=== PATIENT | female | born 1945 | race Caucasian/White ===

== ENCOUNTER → 2017-05-12 | Outpatient (CLI) | payer OTHER ==
[2015-02-26 12:20] VITALS: BP 96/50
[~2017-05-12] MED LIST: AMLO5TAB2 PO; ASPI-630 PO; ATOR10TA60 PO; CARV25TA2 PO; CHOL100013 PO; FAMO20TA5 PO; HYDR12.58 PO; HYDR25TA9 PO; LISI-334 PO; MULT1TAB52 PO; OMEP40CA5 PO; PANT40TA5 PO; POTA20TA12 PO; SERT100T8 PO
--- NOTE | 2017-05-13 16:31 | RAD ---
DATE: 05/13/2017 EXAM: DIGITAL SCREEN RT W/CAD HISTORY: A symptomatic screening mammogram. History of left mastectomy. History of mother and sister x2 with breast cancer. COMPARISON: Mammogram 04/09/2016 This study was interpreted with the benefit of Computerized Aided Detection (CAD). The breast parenchyma is primarily fatty replaced. Breast parenchyma level density A. FINDINGS: MLO and cc views of the right breast are performed. There are no suspicious microcalcifications, masses or areas of architectural distortion. Findings are stable from the prior mammogram. IMPRESSION: Negative right mammogram. BI-RADS CATEGORY: 1 NEGATIVE RECOMMENDED FOLLOW-UP: 12M 12 MONTH FOLLOW-UP PQRS compliance statement: Patient information was entered into a reminder system with a target due date 05/13/2018 for the next mammogram. Mammography is a sensitive method for finding small breast cancers, but it does not detect them all and is not a substitute for careful clinical examination. A negative mammogram does not negate a clinically suspicious finding and should not result in delay in biopsying a clinically suspicious abnormality. "Our facility is accredited by the [employer] Mammography [employer]."
== END | disposition home or self-care (01) ==
LOC: MAMMO 10:40
PROVIDERS: ATTEND Specialist
DX: Z12.31 Encounter for screening mammogram for malignant neoplasm of breast (principal)
CPT/HCPCS: G0202; 77067

== ENCOUNTER → 2018-06-09 | Outpatient (CLI) | payer OTHER ==
[2015-02-26 12:20] VITALS: BP 96/50
--- NOTE | 2018-06-09 14:52 | RAD ---
DATE: 06/09/2018 EXAM: DIGITAL SCREEN RT W/CAD HISTORY: Previous left breast cancer COMPARISON: 05/12/2017 This study was interpreted with the benefit of Computerized Aided Detection (CAD). The breast parenchyma is primarily fatty replaced. Breast parenchyma level density A. FINDINGS: A small nodule projected over the axillary tail region of the right breast on the current study was not evident on the previous exam, however, that may be due to differences in patient positioning. A small lymph node is suspected. No other new or enlarging breast densities are seen. There are scattered benign type calcifications. No suspicious microcalcifications have developed. IMPRESSION: Newly visualized right axillary tail breast nodule. Diagnostic mammography and possibly right breast ultrasound are suggested for further evaluation. BI-RADS CATEGORY: 0 INCOMPLETE: NEEDS ADDITIONAL IMAGING EVALUATION AND/OR PRIOR MAMMOGRAMS FOR COMPARISON. RECOMMENDED FOLLOW-UP: ADD ADDITIONAL IMAGING PQRS compliance statement: Patient information was entered into a reminder system with a target due date for the next mammogram. Mammography is a sensitive method for finding small breast cancers, but it does not detect them all and is not a substitute for careful clinical examination. A negative mammogram does not negate a clinically suspicious finding and should not result in delay in biopsying a clinically suspicious abnormality. "Our facility is accredited by the [employer] Mammography [employer]."
== END | disposition home or self-care (01) ==
LOC: MAMMO 13:47
PROVIDERS: ATTEND Specialist
DX: N63.31 Unspecified lump in axillary tail of the right breast (principal); I10 Essential (primary) hypertension; E78.5 Hyperlipidemia, unspecified; E78.00 Pure hypercholesterolemia, unspecified; Z86.73 Personal history of transient ischemic attack (TIA), and cerebral infarction without residual deficits
CPT/HCPCS: 77067

== ENCOUNTER → 2018-06-23 | Outpatient (CLI) | payer OTHER ==
[2015-02-26 12:20] VITALS: BP 96/50
--- NOTE | 2018-06-23 14:38 | RAD ---
DATE: 06/23/2018 EXAM: MAMMO HILARIA DIAG RT HISTORY: Suspicious screening study COMPARISON: 06/19/2018 This study was interpreted with the benefit of Computerized Aided Detection (CAD). The breast parenchyma is primarily fatty replaced. Breast parenchyma level density A. FINDINGS: Additional views of the right breast including tomosynthesis imaging show that there is actually a cluster of 3 small benign-appearing lymph node type densities in the right axillary region. These were probably not evident on the older studies from 2017 and 2016 due to their far posterior positions. IMPRESSION: Probable benign right axillary tail region lymph nodes. Follow-up right mammography in 6 months is suggested to confirm stability. BI-RADS CATEGORY: 3 PROBABLY BENIGN FINDING(S)-SHORT INTERVAL FOLLOW-UP SUGGESTED RECOMMENDED FOLLOW-UP: 6M 6 MONTH FOLLOW-UP PQRS compliance statement: Patient information was entered into a reminder system with a target due date for the next mammogram. Mammography is a sensitive method for finding small breast cancers, but it does not detect them all and is not a substitute for careful clinical examination. A negative mammogram does not negate a clinically suspicious finding and should not result in delay in biopsying a clinically suspicious abnormality. "Our facility is accredited by the [employer] Mammography [employer]."
== END | disposition home or self-care (01) ==
LOC: MAMMO 13:40
PROVIDERS: ATTEND Specialist
DX: R92.8 Other abnormal and inconclusive findings on diagnostic imaging of breast (principal); I10 Essential (primary) hypertension; E78.5 Hyperlipidemia, unspecified; E78.00 Pure hypercholesterolemia, unspecified; Z86.73 Personal history of transient ischemic attack (TIA), and cerebral infarction without residual deficits
CPT/HCPCS: 77065; G0279; 77061

== ENCOUNTER → 2019-11-10 | Outpatient (CLI) | payer MEDICAID ==
[2015-02-26 12:20] VITALS: BP 96/50
[~2019-11-10] MED LIST changes: +AMLO5TAB10 PO; -AMLO5TAB2 PO; +HYDR-2145 PO; -HYDR25TA9 PO; +OMEP40CA45 PO; -OMEP40CA5 PO
--- NOTE | 2019-11-10 16:35 | RAD ---
DATE: 11/10/2019 EXAM: DIGITAL SCREEN RT W/CAD HISTORY: Left mastectomy. Routine screening. COMPARISON: 06/23/2018, 06/09/2018, 05/12/2017, 04/09/2016 mammographic exam This study was interpreted with the benefit of Computerized Aided Detection (CAD). Breast Density: SCATTERED The breast parenchyma shows scattered fibroglandular densities. Breast parenchyma level B. FINDINGS: Exam was performed with the patient in a wheelchair and has resulted is limited. Benign calcifications are present. No mass or distortion. No new asymmetries. IMPRESSION: Stable BI-RADS CATEGORY: 1 NEGATIVE RECOMMENDED FOLLOW-UP: 12M 12 MONTH FOLLOW-UP PQRS compliance statement: Patient information was entered into a reminder system with a target due date for the next mammogram. Mammography is a sensitive method for finding small breast cancers, but it does not detect them all and is not a substitute for careful clinical examination. A negative mammogram does not negate a clinically suspicious finding and should not result in delay in biopsying a clinically suspicious abnormality. "Our facility is accredited by the [employer] Mammography [employer]."
== END | disposition home or self-care (01) ==
LOC: MAMMO 13:39
PROVIDERS: ATTEND Specialist
DX: Z12.31 Encounter for screening mammogram for malignant neoplasm of breast (principal); N64.89 Other specified disorders of breast
CPT/HCPCS: 77067

== ENCOUNTER → 2020-11-26 | Outpatient (CLI) | payer MEDICAID ==
[2015-02-26 12:20] VITALS: BP 96/50
[~2020-11-26] MED LIST changes: +AMLO-186 PO; -AMLO5TAB10 PO; -LISI-334 PO; +LISI20TA18 PO; +MULT-445 PO; -MULT1TAB52 PO; -PANT40TA5 PO; +PANT40TA6 PO; +SERT-269 PO; -SERT100T8 PO
--- NOTE | 2020-11-26 13:06 | RAD ---
DATE: 11/26/2020 10:18 AM EXAM: DIGITAL SCREEN RT W/CAD HISTORY: Screening. Personal history of left mastectomy. The patient is also wheelchair-bound with a history of stroke.. COMPARISON: 11/10/2019 right mammogram Right full field craniocaudal and mediolateral oblique images were obtained using digital technique. This study was interpreted with the benefit of Computerized Aided Detection (CAD). FINDINGS: Breast Density: FATTY The Breast Parenchyma is primarily fatty replaced. Breast parenchyma level density A. No suspicious masses, microcalcifications or architectural distortion is present to suggest malignancy. The visualized axilla is unremarkable. IMPRESSION: No mammographic evidence of malignancy. BI-RADS CATEGORY: 1 NEGATIVE RECOMMENDED FOLLOW-UP: 12M 12 MONTH FOLLOW-UP Annual screening mammography is recommended, unless clinically indicated sooner based on symptoms or change in physical exam. PQRS compliance statement: Patient information was entered into a reminder system with a target due date for the next mammogram. Mammography is a sensitive method for finding small breast cancers, but it does not detect them all and is not a substitute for careful clinical examination. A negative mammogram does not negate a clinically suspicious finding and should not result in delay in biopsying a clinically suspicious abnormality. "Our facility is accredited by the [employer] Mammography [employer]."
== END ==
LOC: MAMMO 09:16
PROVIDERS: ATTEND Family Medicine
DX: Z12.31 Encounter for screening mammogram for malignant neoplasm of breast (principal)
CPT/HCPCS: 77067

== ENCOUNTER → 2022-01-16 | Outpatient (CLI) | payer MEDICAID ==
[2015-02-26 12:20] VITALS: BP 96/50
[~2022-01-16] MED LIST changes: -OMEP40CA45 PO; +OMEP40CA7 PO
--- NOTE | 2022-01-16 17:33 | RAD ---
DATE: 01/16/2022 EXAM: MG 2D UNILAT SCREENING HISTORY: Screening. History of left mastectomy. COMPARISON: 11/26/2020, 11/10/2019, 06/21/2018, 05/12/2017 This study was interpreted with the benefit of Computerized Aided Detection (CAD). Breast Density: SCATTERED The breast parenchyma shows scattered fibroglandular densities. Breast pare nchyma level B. FINDINGS: No suspicious mass, suspicious calcification, or architectural distortion. Benign calcifications are unchanged. IMPRESSION: No evidence of malignancy. BI-RADS CATEGORY: 1 NEGATIVE RECOMMENDED FOLLOW-UP: 12M 12 MONTH FOLLOW-UP PQRS compliance statement: Patient information was entered into a reminder system with a target due d ate for the next mammogram. Mammography is a sensitive method for finding small breast cancers, but it does not detect them all a nd is not a substitute for careful clinical examination. A negative mammogram does not negate a clin ically suspicious finding and should not result in delay in biopsying a clinically suspicious abnorma lity. "Our facility is accredited by the [employer] Mammography [employer]." Electronically signed by: Jennifer Kumar MD (01/16/2022 5:31 PM) [id number]
== END ==
LOC: MAMMO 13:47
PROVIDERS: ATTEND Family Medicine
DX: Z12.31 Encounter for screening mammogram for malignant neoplasm of breast (principal)
CPT/HCPCS: 77067